=== PATIENT | female | born 1975 | race Caucasian/White ===

== ENCOUNTER 2019-01-16 20:45 | Emergency (ER) | payer SELFPAY ==
[~2019-01-16] VITALS: Ht 167.6 cm; Wt 71.7 kg
[2019-01-16 21:10] VITALS: Ht 167.6 cm; Wt 71.7 kg
[2019-01-16 22:19] VITALS: BP 126/69
== END 2019-01-16 22:19 | disposition home or self-care (01) ==
LOC: ED 20:45
DX: S91.332A Puncture wound without foreign body, left foot, initial encounter (principal); W22.8XXA Striking against or struck by other objects, initial encounter; Y93.89 Activity, other specified; Y92.89 Other specified places as the place of occurrence of the external cause; Y99.8 Other external cause status
CPT/HCPCS: 90715